=== PATIENT | male | born 1995 | race African-American/Black ===

== ENCOUNTER 2017-01-13 22:23 | Emergency (ER) | payer OTHER ==
[2017-01-13 22:52] VITALS: BMI 27.3
--- NOTE | 2017-01-13 22:58 | PDOC ---
History of Present Illness - General History Source: Patient Exam Limitations: No Limitations - History of Present Illness Initial Comments: 01/13/17 23:43 Patient is a 21 year old male with a significant past medical history of asthma who presents to the ED with complaints of SOB that began 2 hours before arrival. Patient reports experiencing sudden SOB while at home with no signs of subsiding. Patient does not rate the intensity of the SOB but states it was significant enough for him not to be able to fall asleep. He reports experiencing chills and cough secondary to SOB. Patient states no sick individuals within his work environment but states there are members of his family at home who are coughing. Patient states he has never used prednisone before and states the last time he used an inhaler was 2 months ago after experiencing a similar experience. Denies chest pain. Denies out of state travel. Denies abdominal pain, dysuria, constipation, diarrhea. Denies any other symptoms. Allergies: NKDA. Dog Allergy. Pollen Allergy. Social history: Current Smoker. No alcohol. No illicit drugs. Surgical history: None PMD: Dr. Ronen Martinez <Derek Norris - Last Filed: 01/13/17 23:43> <Elise Bradford - Last Filed: 01/14/17 00:05> - General Chief Complaint: Asthma Stated Complaint: SOB Time Seen by Provider: 01/13/17 22:28 Past History <Derek Norris - Last Filed: 01/13/17 23:43> - Immunization History Immunization Up to Date: Yes - Suicide/Smoking/Psychosocial Hx Smoking Status: No Smoking History: Current some day smoker Have you smoked in the past 12 months: Yes Number of Cigarettes Smoked Daily: 3 Information on smoking cessation initiated: No Hx Alcohol Use: Yes (socially) Drug/Substance Use Hx: Yes (marijuanna) Substance Use Type: Marijuana <Elise Bradford - Last Filed: 01/14/17 00:05> - Past Medical History Allergies/Adverse Reactions: Allergies Allergy/AdvReac Type Severity Reaction Status Date / Time No Known Allergies Allergy Verified 07/05/15 11:11 Home Medications: Ambulatory Orders NK [No Known Home Medication] 07/05/15 Review of Systems - Review of Systems Able to Perform ROS?: Yes Comments:: 01/13/17 23:43 GENERAL/CONSTITUTIONAL: No fever or chills. No weakness. HEAD, EYES, EARS, NOSE AND THROAT: No change in vision. No ear pain or discharge. No sore throat. CARDIOVASCULAR: No chest pain or shortness of breath. RESPIRATORY: +Coughing. +SOB. No wheezing, or hemoptysis. GASTROINTESTINAL: No nausea, vomiting, diarrhea or constipation. GENITOURINARY: No dysuria, frequency, or change in urination. MUSCULOSKELETAL: No joint or muscle swelling or pain. No neck or back pain. SKIN: No rash NEUROLOGIC: No headache, vertigo, loss of consciousness, or change in strength/ sensation. ENDOCRINE: No increased thirst. No abnormal weight change. HEMATOLOGIC/LYMPHATIC: No anemia, easy bleeding, or history of blood clots. ALLERGIC/IMMUNOLOGIC: No hives or skin allergy. All Other Systems: Reviewed and Negative <Derek Norris - Last Filed: 01/13/17 23:43> *Physical Exam - Vital Signs Last Vital Signs Temp Pulse Resp BP Pulse Ox 99.8 F H 101 H 20 153/73 92 L 01/13/17 22:49 01/13/17 22:49 01/13/17 22:49 01/13/17 22:49 01/13/17 22:49 - Physical Exam Comments: 01/13/17 23:44 GENERAL: +Low grade fever to touch. Awake, alert, and fully oriented, in no acute distress HEAD: No signs of trauma EYES: PERRLA, EOMI, sclera anicteric, conjunctiva clear ENT: Auricles normal inspection, hearing grossly normal, nares patent, oropharynx clear without exudates. Moist mucosa NECK: Normal ROM, supple, no lymphadenopathy, JVD, or masses LUNGS: +Bilateral chest tightness. +Bilateral wheezing. Breath sounds equal, clear to auscultation bilaterally. No wheezes, and no crackles HEART: Regular rate and rhythm, normal S1 and S2, no murmurs, rubs or gallops ABDOMEN: Soft, nontender, normoactive bowel sounds. No guarding, no rebound. No masses EXTREMITIES: Normal range of motion, no edema. No clubbing or cyanosis. No cords, erythema, or tenderness NEUROLOGICAL: Cranial nerves II through XII grossly intact. Normal speech, normal gait SKIN: Warm, Dry, normal turgor, no rashes or lesions noted. <Derek Norris - Last Filed: 01/13/17 23:43> - Vital Signs Last Vital Signs Temp Pulse Resp BP Pulse Ox 99.8 F H 101 H 20 153/73 92 L 01/13/17 22:49 01/13/17 22:49 01/13/17 22:49 01/13/17 22:49 01/13/17 22:49 <Elise Bradford - Last Filed: 01/14/17 00:05> Medical Decision Making - Medical Decision Making 01/14/17 00:04 Pt comes with cough and cold and asthma and he is a smoker. Everyone at home is sick. His last asthma attack was 2 mos ago. Pt is waiting for CXR; meds given. He will be signedout to the midnight ER doctor, <Elise Bradford - Last Filed: 01/14/17 00:05> *DC/Admit/Observation/Transfer - Attestations Scribe Attestion: 01/13/17 23:44 Documentation prepared by Derek Norris, acting as chief medical technologist for Elise Bradford MD/DO. <Derek Norris - Last Filed: 01/13/17 23:43> <Elise Bradford - Last Filed: 01/14/17 00:05> - Referrals Referrals: Ronen Martinez MD [Primary Care Provider] - - Patient Instructions - Post Discharge Activity
[2017-01-13] MEDS ORDERED: ACETAMINOPHEN 325 MG TABLET (FP) PO ONE (22:59)
[2017-01-13] MEDS ORDERED: AZITHROMYCIN 250 MG TABLET PO ONE (23:00)
[2017-01-13] MEDS ORDERED: predniSONE 20 MG TABLET (UD) PO ONE (23:00)
[2017-01-13] MEDS ORDERED: ALBUTEROL SO4 2.5/IPRATROPIUM 0.5 INH SOL 3 ML VIAL.NEB. NEB ONE (23:01)
[2017-01-13] MEDS ORDERED: AZITHROMYCIN 250 MG TABLET ONE (23:50)
[2017-01-13] MEDS ORDERED: ACETAMINOPHEN 325 MG TABLET (FP) ONE (23:50)
[2017-01-13] MEDS ORDERED: predniSONE 20 MG TABLET (UD) ONE (23:50)
--- NOTE | 2017-01-14 00:11 | PDOC ---
*Physical Exam - Vital Signs Last Vital Signs Temp Pulse Resp BP Pulse Ox 99.8 F H 101 H 20 153/73 92 L 01/13/17 22:49 01/13/17 22:49 01/13/17 22:49 01/13/17 22:49 01/13/17 22:49 ED Treatment Course - Medications Given in the ED: ED Medications Discontinued Medications Generic Name Dose Route Start Last Admin Trade Name Yoan PRN Reason Stop Dose Admin Acetaminophen 650 mg 01/13/17 22:59 01/13/17 23:55 Tylenol - PO 01/13/17 23:00 650 mg ONCE ONE Administration Azithromycin 500 mg 01/13/17 23:00 01/13/17 23:56 Zithromax - PO 01/13/17 23:01 500 mg ONCE ONE Administration Prednisone 40 mg 01/13/17 23:00 01/13/17 23:56 Deltasone - PO 01/13/17 23:01 40 mg ONCE ONE Administration Medical Decision Making - Medical Decision Making 01/14/17 00:10 Pt signed out to me from Dr. Bradford pt is a 21y M hx of asthma presents with cough / wheezing, subjective fever. family all has similar symptoms suspect bronchitis vs pna awaitnig cxr vitals noted for low grade fever and sat of 92 --> will repeat after treatment will reassess 01/14/17 00:59 pt feeling improved w/ nebs cxr neg for infiltrates pts vitals improved will give pt rx for asthma pump and zpack will have pt fu with pmd return precautions were discussed I discussed the physical exam findings, ancillary test results and final diagnoses with the patient. I answered all of the patient's questions. The patient was satisfied with the care received and felt comfortable with the discharge plan and treatment plan. The patient will call their primary care physician within 24 hours to arrange follow-up and will return to the Emergency Department with any new, persistent or worsening symptoms. *DC/Admit/Observation/Transfer Diagnosis at time of Disposition: Upper respiratory infection, viral, Bronchitis - Discharge Dispostion Disposition: HOME Condition at time of disposition: Improved Admit: No - Referrals Referrals: Ronen Martinez MD [Primary Care Provider] - - Patient Instructions Printed Discharge Instructions: DI for Acute Bronchitis Additional Instructions: Return to the emergency department immediately with ANY new, persistent or worsening symptoms including any difficulty breathing or other concerns. Continue the antibiotics and inhalers as prescribed You MUST call and follow up with your doctor tomorrow for further evaluation of your symptoms. Results were discussed with you. Please make sure your doctor reviews the results of your emergency evaluation. If you had any xrays during your visit, it was read preliminarily by myself, a Radiologist will review it and if there are any additional findings we will call you. Print Language: IRAQI - Post Discharge Activity
[2017-01-14] MEDS ORDERED: AZITHROMYCIN 250 MG TABLET ONE (00:44)
[2017-01-14 00:51] VITALS: BP 138/77; PULSE 103; TEMP 99.4
== END 2017-01-14 01:19 | disposition home or self-care (01) ==
LOC: JER 22:23
DX: J40 Bronchitis, not specified as acute or chronic (principal)
CPT/HCPCS: 71020-TC; 99281-25